=== PATIENT | female | born 1950 | race Caucasian/White ===

== ENCOUNTER 2016-08-11 06:19 | Inpatient (IN) | payer MEDICARE ==
--- NOTE | 2016-08-03 12:43 | HP ---
HISTORY AND PHYSICAL: DATE OF SURGERY: 08/11/16 DATE OF OFFICE VISIT: 08/03/16 SURGEON: Pavithra Cain MD. (DICTATED BY PASTORA HERNANDEZ) PROCEDURE: Right total knee arthroplasty. CHIEF COMPLAINT: Right knee pain. HISTORY OF PRESENT ILLNESS: Ms. Rivera is a 66-year-old female with complaints of right knee pain secondary to advanced osteoarthritis. She has failed conservative management and has elected to proceed with a right total knee arthroplasty, which is scheduled for 08/11/[address] Cain. PAST MEDICAL HISTORY: Hypertension and supraventricular tachycardia. PAST SURGICAL HISTORY: Right knee arthroscopy, tubal ligation. CURRENT MEDICATIONS: 1. Amlodipine 10 mg daily. 2. Metoprolol 50 mg daily. 3. Magnesium oxide 400 mg daily. 4. Os-Dayday 500/200, D3 twice a day. 5. Multivitamin. ALLERGIES: No known drug allergies. FAMILY MEDICAL HISTORY: Heart disease, diabetes, prostate cancer. SOCIAL HISTORY: She is a 66-year-old female. She is . She is retired. She does not smoker or use drugs. She uses occasional alcohol. REVIEW OF SYSTEMS: A complete 14-point review of systems was reviewed with the patient, was all negative and noncontributory. PHYSICAL EXAMINATION GENERAL: She is well developed, well nourished, in no acute distress. She is alert and oriented x3, pleasant and with appropriate affect. VITAL SIGNS: The patient is 5 feet 4 inches tall, weight 235 pounds, blood pressure 140/86, heart rate 68. HEENT: Normocephalic, atraumatic. NECK: Supple. No palpable lymph nodes. CARDIAC: Regular rate and rhythm. PULMONARY: The lungs are clear to auscultation bilaterally. ABDOMEN: Soft, nontender, nondistended. MUSCULOSKELETAL: Right lower extremity, the skin is intact. There is a large effusion with tenderness over the medial-lateral joint line. 0 to 125 range of motion. Her lower extremities muscle group strengths are intact at 5/5. She has 2+ dorsalis pedis pulses and intact sensation. NEUROLOGIC: Cranial nerves II through XII are intact. ASSESSMENT AND PLAN: Ms. Rivera is a 66-year-old female with complaints of right knee pain secondary to osteoarthritis. She has failed conservative management and has elected to proceed with the right total knee arthroplasty. The surgery is scheduled for 08/11/[address] Cain discussed the risks and benefits of the surgery at today's visit and all of her questions were answered. Coumadin, Colace, and Percocet were sent to her pharmacy for postoperative pain control and DVT prophylaxis. To see Dr. Cain back in 2 weeks following surgery. PASTORA HERNANDEZ [id number]/[facility] #: [id number] MTDRigoberto
[~2016-08-11 06:19] MED LIST: Dexamethasone IV* 4 MG/ML 1 ML (4 MG) IV SLOW PU ONE; Famotidine IV* 10 MG/ML 2 ML (20 mg) IV ONE
[2016-08-11] MEDS ORDERED: Midazolam* 1 MG/ML 5 ML VIAL (5 MG) ONE (06:41)
[2016-08-11] MEDS ORDERED: fentaNYL* 50 MCG/ML 2 ML VIAL (100 MCG VIAL) ONE ×3 (06:41→10:20)
[2016-08-11] MEDS ORDERED: HYDROmorphone* 1 MG/ML 1 ML SYR ONE ×3 (06:41→08:13)
[2016-08-11] MEDS ORDERED: Morphine PF AMP (0.5MG/ML)* 5 MG/10 ML AMP ONE (06:41)
[2016-08-11] MEDS ORDERED: Dexamethasone IV* 4 MG/ML 1 ML (4 MG) ONE (06:52)
[2016-08-11] MEDS ORDERED: ceFAZolin 2 GM PREMIX(*) 2 GM/50 ML BAG IVPB ONE (06:52)
[2016-08-11] MEDS ORDERED: Famotidine IV* 10 MG/ML 2 ML (20 mg) ONE (06:52)
[2016-08-11] MEDS ORDERED: Dexmedetomidine* 200 MCG/2 ML 2 ML VIAL ONE (06:54)
[2016-08-11] MEDS ORDERED: Propofol* 10 MG/ML 20 ML BTL IV PUSH ONE ×2 (06:54→10:00)
[2016-08-11] MEDS ORDERED: Bupivacaine 0.5% SDV PF* 30 ML VIAL ONE (07:06)
[2016-08-11] MEDS ORDERED: fentaNYL* 50 MCG/ML 2 ML VIAL (100 MCG VIAL) IV PRN (07:21)
[2016-08-11] MEDS ORDERED: PROCHLORPERAZINE INJ 5 MG/ML 2 ML VIAL IV PRN ×2 (07:21→10:43)
[2016-08-11] MEDS ORDERED: DiMENhydriNATE IV* 50 MG/ML VIAL IV PUSH PRN ×2 (07:21→10:43)
[2016-08-11] MEDS ORDERED: Ondansetron INJ* 2 MG/ML VIAL IV PRN ×2 (07:21→10:43)
[2016-08-11] MEDS ORDERED: HYDROmorphone* 1 MG/ML 1 ML SYR IV PRN (07:21)
[2016-08-11] MEDS ORDERED: Meperidine SYRINGE* 50 MG/ML ONE (08:13)
[2016-08-11] MEDS ORDERED: traZODone TAB* 50 MG TAB PO PRN (10:35)
[2016-08-11] MEDS ORDERED: Bisacodyl SUPP* 10 MG SUPP PR PRN (10:35)
[2016-08-11] MEDS ORDERED: oxyCODONE/Acetamin 5/325 MG* TAB PO PRN ×2 (10:35→10:43)
[2016-08-11] MEDS ORDERED: Acetaminophen TAB* 325 MG PO PRN (10:35)
[2016-08-11] MEDS ORDERED: Magnesium Hydroxide LIQ* 30 ML UDC PO PRN (10:35)
[2016-08-11] MEDS ORDERED: diPHENhydraMINE IV* 50 MG/ML 1 ml VIAL (BENADRYL) IV PRN ×2 (10:35→10:43)
[2016-08-11] MEDS ORDERED: Polyethylene Glycol 3350* 17 GM PACKET PO PRN (10:35)
[2016-08-11] MEDS ORDERED: Ondansetron TAB* 4 MG PO PRN (10:35)
[2016-08-11] MEDS ORDERED: Morphine INJ* 2 MG/ML 1 ML SYRINGE IV PRN (10:35)
[2016-08-11] MEDS ORDERED: Naloxone* 0.4 MG/ML 1 ML VIAL IV PRN (10:43)
[2016-08-11] MEDS ORDERED: Nalbuphine* 20 MG/ML 1 ML VIAL IV PRN (10:43)
[2016-08-11] MEDS ORDERED: ceFAZolin VIAL(*) 1 GM in NS 0.9% 50 ML* 50 ML IVPB SCH (11:00)
--- NOTE | 2016-08-11 11:47 | RAD ---
INDICATION: Right total knee replacement COMPARISON: June 29, 2016 TECHNIQUE: Portable AP and crosstable lateral views were obtained. FINDINGS: There is right knee arthroplasty. Both tibial and femoral components appear well seated. There is a cooling jacket in place. IMPRESSION: POSTOPERATIVE RIGHT KNEE ARTHROPLASTY.
[2016-08-11] MEDS: ceFAZolin VIAL(*) 1 GM in NS 0.9% 50 ML* 50 ML IVPB SCH ×2 (15:36→23:29)
[2016-08-11] MEDS ORDERED: Warfarin TAB(*) 6 MG PO ONE (17:00)
[2016-08-11] MEDS: Metoprolol Succinate XL TAB* 50 MG PO SCH (17:04)
[2016-08-11] MEDS ORDERED: Metoprolol Succinate XL TAB* 50 MG PO SCH (18:00)
--- NOTE | 2016-08-11 19:59 | CONS ---
CONSULTATION REPORT: DATE OF CONSULT: 08/11/16 PRIMARY CARE PROVIDER: Dr. Funk. ORTHOPEDIC SURGEON: Dr. Cain. SERVICE REQUESTING CONSULT: Orthopedic Surgery. REASON FOR CONSULT: Co-medical management. HISTORY OBTAINED: From interview with the patient and review of past medical records. RELIABILITY: Good. HISTORY OF PRESENT ILLNESS: A 66-year-old female with past medical history of high blood pressure, osteoarthritis, as well as supraventricular tachycardia. She underwent a right total knee arthroplasty on 08/11/[address] Cain secondary to continued pain status post failing conservative management. The procedure was without complication. The patient was seen in Recovery in the presence of her . The patient relays that she received the diagnosis of supraventricular tachycardia 2 years prior after presenting to [facility] with tachycardia, shortness of breath. She was started on metoprolol at that time. She still intermittently gets episodes of palpitations; however, they largely resolve with Valsalva maneuver or coughing. There have been no recent changes to her medications. She has been a life-long nonsmoker and avoids caffeine. PAST MEDICAL HISTORY: Includes: 1. Hypertension. 2. Supraventricular tachycardia. 3. Osteoarthritis. PAST SURGICAL HISTORY: Right knee arthroscopy, tubal ligation. MEDICATIONS: Home medications reviewed with the patient and : 1. Amlodipine 10 mg daily. 2. Metoprolol XL 50 mg daily. 3. Magnesium oxide 400 mg daily. 4. Os-Dayday 500/200 twice daily. 5. Multivitamin daily. ALLERGIES: No known drug allergies. FAMILY HISTORY: Father had arthritis, cancer, CAD. Mother with hypertension. Paternal grandfather with CAD. SOCIAL HISTORY: Life-long nonsmoker. . One to two glasses of wine per month. PHYSICAL EXAM: Vitals: When seen by this author, 101/71, heart rate is 70, 94 % on 2 L, respiratory rate 18. Sitting up, 35 degrees in bed, interactive, pleasant, in no apparent distress. Oropharynx is clear, has dry mucous membranes. JVD to approximately 5 cm. Has regular rate and rhythm. No murmurs , rubs, or gallops. Her lungs are clear to auscultation bilaterally. Abdomen is soft, nontender, nondistended. Extremities are warm and well perfused. Her right knee is braced. She has good pulses in both feet. Neurovascularly intact. She is alert and oriented x3. Pupils are equal, round, and reactive to light. LABORATORY DATA: Reviewed, no labs prior to operation. ASSESSMENT AND PLAN: A 66-year-old female status post right total knee arthroplasty without complication. 1. Right total knee arthroplasty - postop day 0, trending serial hemoglobin and hematocrits daily as ordered per orthopedic team. Care per primary team. 2. Hypotension - blood pressure low status post procedure suspected in the setting of anesthesia. We will plan on restarting amlodipine when blood pressure normalizes or becomes hypertensive tomorrow. Medication is ordered. I have added hold parameter. 3. Supraventricular tachycardia - well controlled. Check BMP tomorrow. Continue magnesium. Continue metoprolol. I have added hold parameters. 4. DVT prophylaxis - primary team has elected Lovenox and Coumadin. I will continue to follow. Thank you for this consultation. CC: Dr. Funk; Dr. Cain* [id number]/[facility] #: [id number] [facility]
[2016-08-11] MEDS: Docusate CAP* 100 MG PO SCH (20:01)
[2016-08-12] MEDS: oxyCODONE/Acetamin 5/325 MG* TAB PO PRN ×3 (04:09→12:29)
[2016-08-12 06:07] LABS: Hematocrit 35 % (35-47); Hemoglobin 11.9 g/dl (12.0-16.0)
[2016-08-12 06:23] LABS: BUN/Creatinine Ratio 17.9 (8-20); Calcium 8.7 mg/dL (8.6-10.3); EGFR African American 138.5 (>60); EGFR Non-African American 107.7 (>60); Potassium 3.7 mmol/L (3.5-5.0)
[2016-08-12] MEDS: ceFAZolin VIAL(*) 1 GM in NS 0.9% 50 ML* 50 ML IVPB SCH (08:13)
[2016-08-12] MEDS: Enoxaparin(*) 30 MG/0.3 ML SYR SUBCUT SCH (08:15)
[2016-08-12] MEDS: amLODIPine TAB* 5 MG PO SCH (08:16)
[2016-08-12] MEDS: Docusate CAP* 100 MG PO SCH ×2 (08:16→20:10)
[2016-08-12] MEDS ORDERED: AMLODIPINE BESYLATE PO SCH (09:00)
--- NOTE | 2016-08-12 09:11 | OP ---
OPERATIVE NOTE: DATE OF OPERATION: 08/11/16 - inpatient room #341-02 DATE OF : 46 ATTENDING SURGEON: Pavithra Cain MD. SHOPPER MARKETING MANAGER: PASTORA Hoskins. Ms. Cornelius was present throughout the procedure for preparation of the leg, wound retraction, manipulation of the leg, and wound closure. ANESTHESIOLOGIST: Dr. Scales ANESTHESIA: Spinal with adductor nerve block. PRE-OP DIAGNOSIS: Severe end-stage degenerative osteoarthritis of the right knee joint. POST-OP DIAGNOSIS: Severe end-stage degenerative osteoarthritis of the right knee joint. OPERATIVE PROCEDURE: Right total knee arthroplasty. TOURNIQUET TIME: 46 minutes. COMPLICATIONS: None. EBL: 200 cc. SPECIMEN: Bone and cartilage from the right knee joint, sent to Pathology. HARDWARE: [employer] cemented total knee hardware was used with 2 packages of Simplex bone cement. For the femur, a size 6 right narrow femoral component. For the tibia, a size 4 right tibial base plate. For the insert, a 13-mm Abbi II PS High-Flexion articular insert, size 3-4. For the patella, a 29-mm 3-peg all poly patella. BRIEF HISTORY/INDICATION: Ms. Rivera is a 66-year-old female with years of increasingly severe right knee pain. She failed conservative treatment with antiinflammatories, pain medications, intraarticular injections, and physical therapy. Radiographs showed severe end-stage arthritis. Due to continued pain and decreased quality of life, the patient elected to undergo right total knee arthroplasty. Informed consent was obtained from the patient. She understood the risks of surgery included, but were not limited to, bleeding, infection, damage to nearby structures, continued pain, need for further surgery, intraoperative fracture, nerve palsy, hardware failure or loosening, stiffness, loss of motion, stroke, heart attack, blood clot, and . She wished to proceed. INTRAOPERATIVE FINDINGS: Intraoperatively, the patient was noted to have severe end-stage arthritis. Full loss of cartilage in the medial and patellofemoral compartments. DESCRIPTION OF PROCEDURE: Ms. Rivera was identified in the preanesthesia unit and her right lower extremity was marked as the correct operative side. Informed consent was signed and placed in the chart. The patient was taken to the operating room and placed under spinal anesthesia with an adductor nerve block. Gibson catheter was placed. Tourniquet was placed on the right thigh. The right lower extremity was prepped and draped in the usual sterile fashion. Preop time-out was made to correctly identify the patient's side and site. Appropriate perioperative antibiotics were given within 1 hour of incision. Tourniquet was inflated and total tourniquet time for this procedure was 46 minutes. A 15-cm midline incision was made with a 10-blade and carried down to the extensor mechanism. Patella was subluxed laterally, carried down to the extensor mechanism. A new 10-blade was used to make a standard medial parapatellar arthrotomy. Patella was subluxed laterally. Electrocautery was used to subperiosteally elevate the soft tissue off the superomedial tibia to the mid sagittal plane. The knee was flexed up. The anterior horn of the lateral meniscus and ACL was sharply released. A drill was used to enter the distal femur. Intramedullary distal femoral cutting guide was pinned on the distal femur. Oscillating saw was used to make the distal femoral cut. External rotation guide was pinned on the distal femur and the distal femur was sized to a size 6. Size 6 multi-cutting jig was pinned on the distal femur. Oscillating saw was used to make the appropriate chamfer cuts. The PCL was completely released and the tibia was subluxed anteriorly. Extramedullary tibial cutting guide was pinned on the proximal tibia. Oscillating saw was used to make a proximal tibial cut perpendicular to the mechanical axis of the tibia. The bone was carefully removed. The knee was brought out into full extension. A spacer block had good fit medially and laterally. Flexion and extension gaps were well balanced. The knee was flexed up. Lamina spreaders were placed both medially and laterally. Any remaining meniscus was carefully removed with electrocautery. Any remaining osteophytes were removed from the posterior condyles. A size 6 right narrow femoral trial was impacted on to the distal femur. This trial had good fit. The box for the posterior stabilized implant was prepared using a reamer and box-cut osteotome. A size 4 tibial tray trial and 11-mm insert trial were placed. The knee was taken through range of motion and noted to be stable in all positions. There was full extension to 120 degrees of flexion. Flexion was limited by the patient's body habitus. Next, the patella was everted. 9-mm of patellar bony cartilage was carefully removed with an oscillating saw. The patella was sized to a size 29. The 3-peg holes were drilled through the size 29 guide. A 29 patellar trial was placed. The knee was taken through range of motion and patellofemoral tracking was satisfactory. All trials were carefully removed. The tibia was subluxed anteriorly. Tibia was sized to a size 4. Proximal tibia was prepared using a size 4 keel punch. All bony cut surfaces were copiously irrigated with sterile saline and dried. Final implants were cemented into place, starting with the tibia, followed by the femur, and lastly the patella. A 13-mm insert trial was placed while the knee was brought out into full extension. Cement was allowed to fully cure and tourniquet was turned down at 46 minutes. Once the cement was fully cured, the insert trial was removed. Any excess cement was carefully removed from around the implant. Electrocautery was used to obtain meticulous hemostasis. The knee was copiously irrigated with sterile saline. A 13- mm High-Flexion size 3-4 posterior stabilized insert was chosen as the final implant insert. This was locked into position on the trial tray without difficulty. Stability of the insert was checked and rechecked and noted to be stable. The knee was once again copiously irrigated with sterile saline. The extensor mechanism was closed using interrupted #1 Vicryl over a medium Hemovac drain. The rest of the incision was closed in a layered fashion using 0 and 2-0 Vicryl' s. Skin was closed using running 3-0 nylon suture. Sterile Xeroform, 4 x 4's, and Webril, were used to cover the incision. The Ra wrap and cold pack were placed over this. The patient's anesthesia was reversed without difficulty. She was taken to the PACU in stable condition. Intended weightbearing will be weightbearing as tolerated. Intended DVT prophylaxis will be Coumadin with a Lovenox bridge. [id number]/[facility] [place] #: [id number] BEATRICE
--- NOTE | 2016-08-12 10:05 | PN ---
Progress Note - Progress Note SOAP: Subjective: []Patient seen OOB in chair. She had a bout of nauesa and lightheadedness when getting up to the chair this am but no vomiting like last evening. He pain is well managed. Objective: [] Vital Signs Temp 97.7 F 08/12/16 07:25 Pulse 77 08/12/16 07:25 Resp 18 08/12/16 08:00 BP 142/74 08/12/16 07:25 Pulse Ox 98 08/12/16 08:00 Intake & Output 08/11/16 08/12/16 08/12/16 18:59 06:59 18:59 Intake Total 3330 1684 1395 Output Total 2745 2000 350 Balance 585 -316 1045 Intake: IV Fluids 2630 554 995 ABX - CEFAZOLIN 67 LR 2630 554 928 IVPB 60 ABX - CEFAZOLIN 60 Oral 640 1130 400 Output: Gibson 1125 1999 350 Residual 20 Gibson 16 Fr 20 Emesis 1400 Estimated Blood Loss 200 Laboratory Results - last 24 hr 08/12/16 08/12/16 08/12/16 05:33 05:33 05:33 Hgb 11.9 L Hct 35 INR (Anticoag Therapy) 1.02 Sodium 136 Potassium 3.7 Chloride 103 Carbon Dioxide 28 Anion Gap 5 BUN 10 Creatinine 0.56 Est GFR ( Amer) 138.5 Est GFR (Non-Af Amer) 107.7 BUN/Creatinine Ratio 17.9 Glucose 112 H Calcium 8.7 Right knee elevated on step stool Active DF/PF calf non tender and soft neuro vascularly intact distally dressings dry and intact hemovac drain discontinued without difficulty, tip intact Assessment: []s/p Right total knee arthroplasty POD #1 Plan: []PT/OT WBAT RLE Coumadin with Lovenox bridge, 8mg today Home Wednesday w VNS
[2016-08-12] MEDS ORDERED: Scopolamine 1.5 mg* PATCH TRANSDERM ONE (15:00)
--- NOTE | 2016-08-12 16:49 | PN ---
Subjective Date of Service: 08/12/16 Interval History: This is a 66 yo female with HTN and PSVT who is s/p RTKA by Dr Cain. Patient reports good pain control. C/o nausea yesterday and this am, improved with scopolamine. Denies SOB, CP, palpitations, abd pain. Objective Active Medications: Acetaminophen (Tylenol Tab*) 650 mg PO Q4H PRN PRN Reason: pain or temp Amlodipine Besylate (Norvasc Tab*) 10 mg PO QAM [facility] Last Admin: 08/12/16 08:16 Dose: 10 mg Bisacodyl (Dulcolax Supp*) 10 mg ND DAILY PRN PRN Reason: constipation Diphenhydramine HCl (Benadryl Iv*) 12.5 mg IV Q6H PRN PRN Reason: PRURITIS Docusate Sodium (Colace Cap*) 100 mg PO BID [facility] Last Admin: 08/12/16 08:16 Dose: 100 mg Enoxaparin Sodium (Lovenox(*)) 30 mg SUBCUT Q24H [facility] Last Admin: 08/12/16 08:15 Dose: 30 mg Lactated Ringer's (Lactated Ringers 1000 Ml Bag*) 1,000 mls @ 100 mls/hr IV PER RATE [facility] Last Admin: 08/12/16 08:20 Dose: 100 mls/hr Lactulose (Lactulose*) 30 ml PO Q6H PRN PRN Reason: constipation Magnesium Hydroxide (Milk Of Magnesia Liq*) 30 ml PO Q6H PRN PRN Reason: constipation Metoprolol Succinate (Toprol Xl Tab*) 50 mg PO QPM [facility] Last Admin: 08/11/16 17:04 Dose: 50 mg Morphine Sulfate (Morphine Inj (Syringe)*) 2 mg IV Q2H PRN PRN Reason: PAIN Ondansetron HCl (Zofran Tab*) 4 mg PO Q6H PRN PRN Reason: NAUSEA Last Admin: 08/12/16 08:54 Dose: 4 mg Oxycodone HCl (Roxycodone Tab*) 10 mg PO Q4H PRN PRN Reason: SEVERE PAIN Oxycodone/Acetaminophen (Percocet 5/325 Tab*) 1 tab PO Q3H PRN PRN Reason: PAIN - MODERATE Oxycodone/Acetaminophen (Percocet 5/325 Tab*) 2 tab PO Q3H PRN PRN Reason: PAIN - MODERATE Last Admin: 08/12/16 12:29 Dose: 2 tab Pharmacy Profile Note (Coumadin Daily Reminder*) 1 note FOLLOW UP 1700 PRICE Polyethylene Glycol/Electrolytes (Miralax*) 17 gm PO DAILY PRN PRN Reason: Constipation Trazodone HCl (Desyrel Tab*) 25 mg PO BEDTIME PRN PRN Reason: insomnia Warfarin Sodium (Coumadin Tab(*)) 8 mg PO ONCE@1700 ONE PRN Reason: Protocol Stop: 08/12/16 17:01 Vital Signs: Temp Pulse Resp BP Pulse Ox 97.9 F 91 18 126/63 97 08/12/16 15:27 08/12/16 15:27 08/12/16 15:27 08/12/16 15:27 08/12/16 15:53 Appearance: Well appearing middle aged female in NAD Respiratory: Symmetrical Chest Expansion and Respiratory Effort, Clear to Auscultation Cardiovascular: NL Sounds; No Murmurs; No JVD, RRR Extremities: No Edema Skin: No Rash or Ulcers, - - R knee in clean surgical dressing Neurological: Alert and Oriented x 3 Result Diagrams: 08/12/16 05:33 08/12/16 05:33 Assess/Plan/Problems-Billing Assessment: This is a 66 yo female with HTN and PSVT s/p R TKA by Dr Cain. Hospitalists are comanaging - Patient Problems (1) History of total knee arthroplasty Comment: POD #[address] Cain Management per ortho Patient appears to be doing quite well (2) HTN (hypertension) Comment: Normotensive Cont metoprolol and amlodipine (3) PSVT (paroxysmal supraventricular tachycardia) Comment: Asx Cont metoprolol, nl BMP (4) Full code status (5) DVT prophylaxis Comment: Lovenox bridge to Coumadin per ortho Status and Disposition: Dispo per ortho. Hospitalists will continue to follow along
[2016-08-12] MEDS ORDERED: Warfarin TAB(*) 4 MG PO ONE (17:00)
[2016-08-12] MEDS: Metoprolol Succinate XL TAB* 50 MG PO SCH (18:13)
[2016-08-12] MEDS: oxyCODONE TAB* 5 MG TAB PO PRN (18:13)
[2016-08-13] MEDS: oxyCODONE TAB* 5 MG TAB PO PRN ×3 (01:10→21:07)
[2016-08-13 06:56] LABS: Hematocrit 36 % (35-47); Hemoglobin 12.1 g/dl (12.0-16.0); Mean Platelet Volume 8 um3 (7.4-10.4)
--- NOTE | 2016-08-13 07:49 | PN ---
Progress Note - Progress Note SOAP: Subjective: Pt. is alert, reports pain is controlled. Objective: RLE - dressing changed, inc c/d/i. distally nvi. Vital Signs: Temp Pulse Resp BP Pulse Ox 99.1 F 108 17 128/66 95 08/13/16 03:12 08/13/16 07:39 08/13/16 06:09 08/13/16 03:12 08/13/16 03:12 Laboratory Results - last 24 hr 08/13/16 08/13/16 06:06 06:06 Hgb 12.1 Hct 36 Plt Count 290 MPV 8 INR (Anticoag Therapy) 1.33 H Assessment: 66 yo F pod 2 s/p RTKA Plan: hct and vitals stable pt/ot lovenox today, 8 mg coumadin tonight. plan d/c to home 08/14
[2016-08-13] MEDS: amLODIPine TAB* 5 MG PO SCH (08:28)
[2016-08-13] MEDS: Docusate CAP* 100 MG PO SCH ×2 (08:28→19:55)
[2016-08-13] MEDS: Enoxaparin(*) 30 MG/0.3 ML SYR SUBCUT SCH (08:29)
[2016-08-13] MEDS: oxyCODONE/Acetamin 5/325 MG* TAB PO PRN ×3 (09:28→17:04)
--- NOTE | 2016-08-13 15:08 | PN ---
Subjective Date of Service: 08/13/16 Interval History: Patient reports no acute concerns. Nausea improved today. Pain well controlled. Nursing was concerned about her tachycardia starting last night. Patient denies associated pain, SOB, cough. Objective Active Medications: Acetaminophen (Tylenol Tab*) 650 mg PO Q4H PRN PRN Reason: pain or temp Amlodipine Besylate (Norvasc Tab*) 10 mg PO QAM [facility] Last Admin: 08/13/16 08:28 Dose: 10 mg Bisacodyl (Dulcolax Supp*) 10 mg RI DAILY PRN PRN Reason: constipation Diphenhydramine HCl (Benadryl Iv*) 12.5 mg IV Q6H PRN PRN Reason: PRURITIS Docusate Sodium (Colace Cap*) 100 mg PO BID [facility] Last Admin: 08/13/16 08:28 Dose: 100 mg Enoxaparin Sodium (Lovenox(*)) 30 mg SUBCUT Q24H [facility] Last Admin: 08/13/16 08:29 Dose: 30 mg Lactated Ringer's (Lactated Ringers 1000 Ml Bag*) 1,000 mls @ 100 mls/hr IV PER RATE [facility] Last Admin: 08/12/16 08:20 Dose: 100 mls/hr Lactulose (Lactulose*) 30 ml PO Q6H PRN PRN Reason: constipation Magnesium Hydroxide (Milk Of Magnfrederick Liq*) 30 ml PO Q6H PRN PRN Reason: constipation Last Admin: 08/13/16 08:25 Dose: 30 ml Metoprolol Succinate (Toprol Xl Tab*) 50 mg PO QPM [facility] Last Admin: 08/12/16 18:13 Dose: 50 mg Morphine Sulfate (Morphine Inj (Syringe)*) 2 mg IV Q2H PRN PRN Reason: PAIN Ondansetron HCl (Zofran Tab*) 4 mg PO Q6H PRN PRN Reason: NAUSEA Last Admin: 08/12/16 08:54 Dose: 4 mg Oxycodone HCl (Roxycodone Tab*) 10 mg PO Q4H PRN PRN Reason: SEVERE PAIN Last Admin: 08/13/16 06:09 Dose: 10 mg Oxycodone/Acetaminophen (Percocet 5/325 Tab*) 1 tab PO Q3H PRN PRN Reason: PAIN - MODERATE Oxycodone/Acetaminophen (Percocet 5/325 Tab*) 2 tab PO Q3H PRN PRN Reason: PAIN - MODERATE Last Admin: 08/13/16 12:37 Dose: 2 tab Pharmacy Profile Note (Coumadin Daily Reminder*) 1 note FOLLOW UP 1700 PRICE Last Admin: 08/12/16 17:05 Dose: 1 note Polyethylene Glycol/Electrolytes (Miralax*) 17 gm PO DAILY PRN PRN Reason: Constipation Trazodone HCl (Desyrel Tab*) 25 mg PO BEDTIME PRN PRN Reason: insomnia Warfarin Sodium (Coumadin Tab(*)) 8 mg PO ONCE@1700 ONE PRN Reason: Protocol Stop: 08/13/16 17:01 Vital Signs: Temp Pulse Resp BP Pulse Ox 98.7 F 97 18 112/64 94 08/13/16 11:13 08/13/16 11:13 08/13/16 12:37 08/13/16 11:13 08/13/16 11:13 Appearance: Well appearing middle aged female in NAD Respiratory: Symmetrical Chest Expansion and Respiratory Effort, Clear to Auscultation Cardiovascular: NL Sounds; No Murmurs; No JVD, RRR Extremities: - - trace bilateral edema Skin: No Rash or Ulcers Neurological: Alert and Oriented x 3 Result Diagrams: 08/13/16 06:06 08/12/16 05:33 Diagnostic Imaging: EKG - sinus, rate ~95 bpm, RBBB Assess/Plan/Problems-Billing Assessment: This is a 66 yo female with HTN and PSVT s/p R TKA by Dr Cain. Hospitalists are comanaging - Patient Problems (1) History of total knee arthroplasty Comment: POD #[address] Cain Management per ortho Patient appears to be doing quite well (2) Tachycardia Comment: Appears to be sinus tachycardia Normotensive, no assoc anemia Improving this afternoon No associated respiratory complaints, nl lung exam Cont to monitor and consider CXR and repeat labs tomorrow if persistent (3) HTN (hypertension) Comment: Normotensive Cont metoprolol and amlodipine (4) PSVT (paroxysmal supraventricular tachycardia) Comment: Asx Cont metoprolol, nl BMP (5) Full code status (6) DVT prophylaxis Comment: Lovenox bridge to Coumadin per ortho Status and Disposition: Dispo per ortho. Hospitalists will continue to follow along
[2016-08-13] MEDS ORDERED: Warfarin TAB(*) 4 MG PO ONE (17:00)
[2016-08-13] MEDS: Metoprolol Succinate XL TAB* 50 MG PO SCH (17:52)
[2016-08-14] MEDS: oxyCODONE/Acetamin 5/325 MG* TAB PO PRN ×3 (03:00→10:43)
[2016-08-14 05:44] LABS: Hematocrit 33 % (35-47); Hemoglobin 11.3 g/dl (12.0-16.0)
[2016-08-14 07:21] VITALS: BP 115/65
[2016-08-14] MEDS: amLODIPine TAB* 5 MG PO SCH (07:32)
[2016-08-14] MEDS: Enoxaparin(*) 30 MG/0.3 ML SYR SUBCUT SCH (07:32)
[2016-08-14] MEDS: Docusate CAP* 100 MG PO SCH (07:32)
--- NOTE | 2016-08-14 07:50 | PN ---
Progress Note - Progress Note SOAP: Subjective: 66 y/o female s/p R TKA by Dr. Cain 08/11/2016. Patient sitting up comfortably , NAD. VSS afebrile overnight. NO BM, but + flatus. Tolerating percocet well. Objective: General- Well appearing, NAD MSK- knee incision taken down, no erythema, drainage noted C/D/I., dressing replaced, + DF/PF, PT 2+ b/l, neg homans b/l, sensation intact grossly b/l LE' s. Vital Signs Temp 98.2 F 08/14/16 07:12 Pulse 88 08/14/16 07:12 Resp 16 08/14/16 07:34 BP 115/65 08/14/16 07:12 Pulse Ox 94 08/14/16 07:34 Intake & Output 08/13/16 08/14/16 08/14/16 18:59 06:59 18:59 Intake Total 840 400 Output Total 1150 850 300 Balance -310 -450 -300 Intake: Oral 840 400 Output: Urine 1150 850 300 Laboratory Results - last 24 hr 08/14/16 08/14/16 05:18 05:18 Hgb 11.3 L Hct 33 L INR (Anticoag Therapy) 2.51 H Assessment: 66 y/o female s/p R TKA by Dr. Cain 08/11/2016. Plan: DVT Prophylaxis- hold lovenox today, INR theraputic. Coumadin at home - Follow up with Dr. Cain in 10 days - Continue PT - Continue current pain regimen Active Medications Generic Name Dose Route Start Last Admin Trade Name Freq PRN Reason Stop Dose Admin Acetaminophen 650 mg 08/11/16 10:35 Tylenol Tab* PO Q4H PRN pain or temp Amlodipine Besylate 10 mg 08/12/16 09:00 08/14/16 07:32 Norvasc Tab* PO 10 mg QAM PRICE Administration Bisacodyl 10 mg 08/11/16 10:35 Dulcolax Supp* CT DAILY PRN constipation Diphenhydramine HCl 12.5 mg 08/11/16 10:35 Benadryl Iv* IV Q6H PRN PRURITIS Docusate Sodium 100 mg 08/11/16 21:00 08/14/16 07:32 Colace Cap* PO 100 mg BID PRICE Administration Enoxaparin Sodium 30 mg 08/12/16 08:00 08/14/16 07:32 Lovenox(*) SUBCUT 30 mg Q24H PRICE Administration Lactulose 30 ml 08/11/16 10:35 Lactulose* PO Q6H PRN constipation Magnesium Hydroxide 30 ml 08/11/16 10:35 08/13/16 08:25 Milk Of Magnesia Liq* PO 30 ml Q6H PRN Administration constipation Metoprolol Succinate 50 mg 08/11/16 18:00 08/13/16 17:52 Toprol Xl Tab* PO 50 mg QPM PRICE Administration Morphine Sulfate 2 mg 08/11/16 10:35 Morphine Inj (Syringe)* IV Q2H PRN PAIN Ondansetron HCl 4 mg 08/11/16 10:35 08/12/16 08:54 Zofran Tab* PO 4 mg Q6H PRN Administration NAUSEA Oxycodone HCl 10 mg 08/11/16 10:35 08/13/16 21:07 Roxycodone Tab* PO 10 mg Q4H PRN Administration SEVERE PAIN Oxycodone/Acetaminophen 1 tab 08/11/16 10:35 Percocet 5/325 Tab* PO Q3H PRN PAIN - MODERATE Oxycodone/Acetaminophen 2 tab 08/11/16 10:35 08/14/16 06:50 Percocet 5/325 Tab* PO 2 tab Q3H PRN Administration PAIN - MODERATE Pharmacy Profile Note 1 note 08/12/16 17:00 08/13/16 17:10 Coumadin Daily Reminder* FOLLOW UP 1 note 1700 PRICE Administration Polyethylene Glycol/Electrolytes 17 gm 08/11/16 10:35 Miralax* PO DAILY PRN Constipation Trazodone HCl 25 mg 08/11/16 10:35 Desyrel Tab* PO BEDTIME PRN insomnia
--- NOTE | 2016-08-15 03:37 | DS ---
DISCHARGE SUMMARY: DATE OF ADMISSION: 08/11/16 DATE OF DISCHARGE: 08/14/16 CHIEF COMPLAINT: 1. Right knee pain. 2. Hypertension. 3. Supraventricular tachycardia. DISCHARGE DIAGNOSES: 1. Status post right total knee arthroplasty. 2. Hypertension. 3. Supraventricular tachycardia. PROCEDURE: Right total knee arthroplasty. CONSULTATIONS: 1. Physical therapy. 2. Occupational therapy. 3. Hospitalist. BRIEF HISTORY: Ms. Rivera is a very pleasant 66-year-old female with severe end- stage degenerat jesse osteoarthritis of the right knee, who failed conservative treatment and elected to undergo a rig ht total knee arthroplasty by Dr. Pavithra Cain, on 08/11/16. HOSPITAL COURSE: Ms. Rivera was admitted to [facility] on 08/11/16, where she underwe nt an uncomplicated right total knee arthroplasty. Postoperatively, she recovered on the surgical ort stay unit. Her Gibson was removed on postoperative day 2 and she was voiding on her own without difficulty. She was advanced to a regular diet and her pain was controlled with p.o. Percocet. She was restarted on her home medications. Her labs and vital signs remained stable. She was able to w eight bear as tolerated on the right lower extremity. She advanced appropriately with physical thera py and occupational therapy. Her DVT prophylaxis was managed with Lovenox and Coumadin until she re ached therapeutic INR. On postoperative day 3, she was orthopedically and medically stable for [facility] go [facility] with [facility] services. PHYSICAL EXAMINATION: General: The patient is noted to be alert and oriented, in no acute distress . Vital Signs: On the day of discharge are temperature of 98.2, pulse of 88, respirations of 16, b lood pressure 115/65, pulse oxygenation 94% on room air. Musculoskeletal: The right knee bandage w as taken down, the incision was clean, dry, intact and replaced. Dorsiflexion and plantar flexion w ere 2+ bilaterally. Negative Homans sign bilaterally. Sensation was grossly intact in bilateral lo wer extremities. LABORATORY DATA: On date of discharge, H and H of 11.3 and 33 with an INR of 2.51. Radiographs: Postoperative radiographs of the right knee show prosthetic in place without signs of fracture. DISCHARGE MEDICATIONS: 1. Tylenol 650 mg p.o. q.4 hours p.r.n., not to exceed more than 4000 mg daily. 2. Dulcolax 10 mg daily p.r.n. 3. Colace 100 mg p.o. b.i.d. 4. Metoprolol 50 mg p.o. q. p.m. 5. Zofran 4 mg p.o. q.6 hours p.r.n. 6. Amlodipine 10 mg p.o. q.a.m. 7. Percocet 5/325 1 to 2 tablets every 3 hours as needed. 8. Magnesium oxide 500 mg p.o. q.h.s. 9. Daily multivitamin. 10. Os-Dayday extra strength 1 tablet p.o. b.i.d. 11. Coumadin 2 mg p.o. daily at 5 p.m. per her physician's instructions. CONDITION ON DISCHARGE: Good. DISCHARGE INSTRUCTIONS: Ms. Rivera is a very pleasant 66-year-old female postoperative day 3, st atus post right total knee arthroplasty, which was uncomplicated. She is orthopedically and medical ly stable for discharge to go home with home services. Her vital signs and labs are stable. She wi ll restart her home medications. She will hold her Coumadin dose for tonight, with a 2 mg on , 4 mg on 08/16/16 and have an INR draw on 08/17/16. She will have INR draws every Wednesday and Wed with visiting home services. She will remain weightbearing as tolerated on the right lower ex tremity. She will have home physical therapy twice a week. She will take Percocet as needed for pa in control and Colace up to 3 times a day for constipation. She will follow up with Dr. Cain in proximately 10 or 14 days for incision check and suture removal. She is instructed to go immediatel y to the ER should she develop chest pain or shortness of breath, and should she develop fever, incr easing pain, or redness, she is to call the office immediately. PASTORA LEAHY [id number]/[facility] #: [id number]
== END 2016-08-14 11:00 | disposition home health service (06) | DRG 470 ==
LOC: AA 06:19 → SSU 10:35
PROVIDERS: ADMIT Orthopaedic Surgery Adult Reconstructive Orthopaedic Surgery; ATTEND Orthopaedic Surgery Adult Reconstructive Orthopaedic Surgery
PROC: 0SRC0J9 Replacement of Right Knee Joint with Synthetic Substitute, Cemented, Open Approach (ICD-10-PCS; principal; 2016-08-11 07:45)
DX: M17.11 Unilateral primary osteoarthritis, right knee (principal); I95.9 Hypotension, unspecified; I47.1 Supraventricular tachycardia; I10 Essential (primary) hypertension; R11.0 Nausea; R42 Dizziness and giddiness; Z79.01 Long term (current) use of anticoagulants; Z98.51 Tubal ligation status; Z82.49 Family history of ischemic heart disease and other diseases of the circulatory system; Z83.3 Family history of diabetes mellitus; Z80.42 Family history of malignant neoplasm of prostate; Z72.89 Other problems related to lifestyle; Z80.9 Family history of malignant neoplasm, unspecified; Z82.61 Family history of arthritis
CPT/HCPCS: 36415; 80048; 85014; 85018; 85049; 85610; 93005; 94760; A9270-GY; C1776; J0690; J1100; J1170; J1240; J1650; J2250; J2300; J2405; J2704; J3010

== ENCOUNTER 2017-04-27 07:45 | Inpatient (IN) | payer MEDICARE ==
--- NOTE | 2017-04-19 20:21 | HP ---
HISTORY AND PHYSICAL: DATE OF ADMISSION/SURGERY: 04/30/17 SURGEON: Pavithra Cain MD.* (DICTATED BY PASTORA HERNANDEZ) PROCEDURE: Left total knee arthroplasty. CHIEF COMPLAINT: Left knee pain. HISTORY OF PRESENT ILLNESS: Ms. Rivera is a 66-year-old female with complaints of left knee pain. She has failed conservative management and elected to proceed with a left total knee arthroplasty which is scheduled for with Dr. Cain. PAST MEDICAL HISTORY: Hypertension and supraventricular tachycardia. PAST SURGICAL HISTORY: Right total knee arthroplasty, tubal ligation, right knee arthroscopy. CURRENT MEDICATIONS: 1. Amlodipine 10 mg daily. 2. Metoprolol 50 mg daily. 3. Magnesium oxide. 4. Calcium with vitamin D. 5. Excedrin as needed. ALLERGIES: None. FAMILY HISTORY: Heart disease, diabetes and prostate cancer. SOCIAL HISTORY: She is a 66-year-old female who lives with her . She does not smoke or use drugs. She uses occasional alcohol. REVIEW OF SYSTEMS: A complete 14-point review of systems was reviewed with the patient, was all negative. She denies history of DVT, PE, hepatitis C, HIV or anesthesia problems. PHYSICAL EXAMINATION GENERAL: Well developed, well nourished, in no acute distress. VITAL SIGNS: She stands 5 feet 4 inches tall, weight 245 pounds. Blood pressure 146/76, heart rate 64. HEENT: Normocephalic, atraumatic. NECK: Supple. No palpable lymph nodes. PULMONARY: The lungs are clear to auscultation bilaterally. CARDIAC: Regular rate and rhythm. Strong S1 and S2. ABDOMEN: Soft, nontender, nondistended. MUSCULOSKELETAL: Left lower extremity, the skin is intact. There is no open wounds or abrasions. She has a moderate joint effusion, some tenderness over the medial and lateral joint line. Range of motion 10 to 100 degrees with patellofemoral crepitus, 5/5 lower extremity strength, 2+ dorsalis pedis pulses and intact sensation. NEUROLOGIC: Alert and oriented x3. Cranial nerves II through XII are intact. ASSESSMENT AND PLAN: Ms. Rivera is a 66-year-old female with end-stage osteoarthritis of the left knee. She has failed conservative management and elected to proceed with a left total knee arthroplasty, which is scheduled for 04/30/[address] Cain discussed the risks and benefits of the surgery at today's visit and all of her questions were answered. Coumadin, Colace, and Percocet were sent to her pharmacy for postoperative pain control and DVT prophylaxis. She will follow up with Dr. Cain 2 weeks after the surgery. PASTORA HERNANDEZ [id number]/[facility] #: [id number]
[~2017-04-27 07:45] MED LIST changes: +Buffered Lidocaine 0.9% SYRIN* 5 ML/SYR SYRINGE INTRADERM ONE; -Dexamethasone IV* 4 MG/ML 1 ML (4 MG) IV SLOW PU ONE; +DiMENhydriNATE IV* 50 MG/ML VIAL IV PUSH PRN; +Morphine INJ* 2 MG/ML 1 ML CARPUJECT IV PRN; +Naloxone* 0.4 MG/ML 1 ML VIAL IV PRN; +PROCHLORPERAZINE INJ 5 MG/ML 2 ML VIAL IV PRN; +Scopolamine 1.5 mg* PATCH TRANSDERM ONE; +fentaNYL* 50 MCG/ML 2 ML VIAL (100 MCG VIAL) IV PRN
[2017-04-27] MEDS ORDERED: Gabapentin CAP(*) 300 MG PO ONE (08:10)
[2017-04-27] MEDS ORDERED: ceFAZolin 2 GM PREMIX (*) 2 GM/50 ML BAG IVPB ONE (08:27)
[2017-04-27] MEDS ORDERED: Scopolamine 1.5 mg* PATCH ONE (08:27)
[2017-04-27] MEDS ORDERED: Gabapentin CAP(*) 300 MG ONE (08:27)
[2017-04-27] MEDS ORDERED: Famotidine IV* 10 MG/ML 2 ML (20 mg) ONE (08:27)
--- OUTSIDE RECORDS SUMMARY | 2017-04-27 08:28 | XMS REPORT ---
:1950 External Reference #:[id number] Author Organization [facility] Address [address], [address] [place] [address] Phone [phone] Care Team Providers Name Role Phone Dominick Funk MD Primary Care Physician Unavailable Payers Type Date Identification Numbers Payment Provider Subscriber Medicare Primary Effective: Policy Number: Medicare Aleshia Rivera 2013 [id number] PayID: [id number] [address] [place] [address] Medigap Part B Effective: Policy Number: [facility] Aleshia Rivera 2013 [id number] Healthcare PayID: [id number] [address] [place] [address] Problems Date Description Provider Status Onset: Palpitations Active Onset: Hypertensive disorder Active Onset: 10/04/2014 Palpitations Pablo Scales MD Active Onset: 10/04/2014 Tachycardia Pablo Scales MD Active Onset: 10/04/2014 Aneurysm of thoracic aorta Pablo Scales MD Active Onset: 10/04/2014 Benign essential hypertension Pablo Scales MD Active Onset: 10/04/2014 Mixed hyperlipidemia Pablo Scales MD Active Onset: 04/20/2017 Essential hypertension Liberty Galan, MSN, Active CORROSION TECHNICIAN Family History Date Family Member(s) Problem(s) Comments Onset: (age 52 Years) Father Myocardial Infarction : (age 83 Years) Mother due to Gi Bleeding Social History Type Date Description Comments Lives With Spouse Diet Patient is on a low fat diet Diet Patient is on a low sodium diet Occupation Retired ADL's/IADL's Independent with all ADL's Cigarette Use Never Smoked Cigarettes ETOH Use Rarely consumes alcohol Daily Caffeine Patient consumes minimal amounts of caffeine Allergies, Adverse Reactions, Alerts Date Description Reaction Status Severity Comments 06/29/2014 NKDA active Medications Medication Date Status Form Strength Qnty SIG Indications Ordering Provider Amlodipine Active Tablets 10mg 30tabs Once Unknown Besylate 015 Daily Oscal 500/200 Active Tablets 500-200mg-U by Unknown D-3 000 nit mouth twice a day Metoprolol Active Tablets ER 50mg 1 by Unknown Succinate ER 000 24HR mouth every day Magnesium Active Capsules 500mg 1 by Unknown 000 mouth every day Multi Vitamin Active Tablets 1 by Unknown 000 mouth every day Metoprolol Hx Tablets ER 25mg 90tabs 1 by [place] Succinate ER 015 24HR mouth MD Yordy every day Bystolic Hx Tablets 2.5mg 30tabs 1 by 401.1 [place] 015 - mouth MD Yordy every 015 day Vital Signs Date Vital Result Comment 04/20/2017 BP Systolic Sitting Left Arm 132 mmHg BP Diastolic Sitting Left Arm 86 mmHg Heart Rate 87 /min Respiratory Rate 16 /min Height 67 inches 5'7" Weight 244.00 lb BMI (Body Mass Index) 38.2 kg/m2 BSA (Body Surface Area) 2.20 m2 [place] body weight in kilograms 61 02/01/2017 BP Systolic Sitting Left Arm 132 mmHg BP Diastolic Sitting Left Arm 88 mmHg Heart Rate 102 /min Respiratory Rate 16 /min Height 67 inches 5'7" Weight 239.00 lb BMI (Body Mass Index) 37.4 kg/m2 BSA (Body Surface Area) 2.18 m2 [place] body weight in kilograms 61 08/03/2016 BP Systolic Sitting Right Arm 130 mmHg BP Diastolic Sitting Right Arm 72 mmHg Heart Rate 91 /min Respiratory Rate 16 /min Height 67 inches 5'7" Weight 248.00 lb BMI (Body Mass Index) 38.8 kg/m2 BSA (Body Surface Area) 2.22 m2 [place] body weight in kilograms 61 05/28/2015 BP Systolic Sitting Left Arm 130 mmHg BP Diastolic Sitting Left Arm 88 mmHg Heart Rate 92 /min Respiratory Rate 16 /min Height 67 inches 5'7" Weight 233.00 lb BMI (Body Mass Index) 36.5 kg/m2 BSA (Body Surface Area) 2.16 m2 10/03/2014 BP Systolic Sitting Left Arm 152 mmHg BP Diastolic Sitting Left Arm 90 mmHg Heart Rate 88 /min Respiratory Rate 16 /min Height 67 inches 5'7" Weight 222.00 lb BMI (Body Mass Index) 34.8 kg/m2 BSA (Body Surface Area) 2.11 m2 07/03/2014 Heart Rate 104 /min Respiratory Rate 16 /min Height 67 inches 5'7" Weight 223.00 lb BMI (Body Mass Index) 34.9 kg/m2 BSA (Body Surface Area) 2.12 m2 Results Test Date Test Result H/L Range Note Laboratory test finding 05/30/2014 Alanine Aminotransferase 15 12-78 (Alt/SGPT) Albumin 3.6 3.4-5.0 Albumin/Globulin Ratio 1.0 Alkaline Phosphatase 80 45-117 Anion Gap 4 Low 8-16 Aspartate Amino Transf (Ast/Sgot) 16 15-37 BUN/Creatinine Ratio 22.5 Basophils # (Auto) 0.02 0.0-0.1 Basophils (%) (Auto) 0.3 0.0-1.1 Blood Urea Nitrogen 18 7-18 Calcium Level 8.7 8.5-10.1 Carbon Dioxide Level 28 21-32 Chloride Level 112 High 98-107 Creatinine 0.8 0.6-1.3 Eosinophils # (Auto) 0.06 0.0-0.5 Eosinophils (%) (Auto) 0.9 0.0-6.6 Free Thyroxine 1.07 0.76-1.46 Globulin 3.5 1.9-4.3 Glucose Screen 107 High 74-106 Hematocrit 43.9 36.0-46.1 Hemoglobin 14.9 11.6-15.8 Lymphocytes # (Auto) 1.50 Low 1.8-7.0 Lymphocytes (%) (Auto) 22.7 17.0-46.1 Mean Corpuscular Hemoglobin 31.8 25.9-32.7 Mean Corpuscular Hemoglobin Concent 33.9 30.8-34.3 Mean Corpuscular Volume 93.8 80.9-99.0 Mean Platelet Volume 10.0 8.9-12.4 Monocytes # (Auto) 0.44 0.3-0.9 Monocytes (%) (Auto) 6.6 4.3-13.2 Neutrophils # (Auto) 4.60 1.0-7.0 Neutrophils (%) (Auto) 69.5 40.4-72.8 Platelet Count 302 155-360 Potassium Level 4.2 3.5-5.1 RDW Coefficient of Variation 12.9 11.7-14.4 Red Blood Count 4.68 3.90-5.40 Red Cell Distribution Width 43.5 3-47 Sodium Level 144 136-145 Thyroid Stimulating Hormone (TSH) 3.77 High 0.36-3.74 Total Bilirubin 0.4 0.2-1.0 Total Creatine Kinase 50 26-192 Total Protein 7.1 6.4-8.2 White Blood Count 6.6 3.1-10.7 Procedures Date CPT Code Description Status 04/20/2017 05822 EKG-Tracing And Report Completed 02/01/2017 90443 EKG-Tracing And Report Completed 08/03/2016 55406 EKG-Tracing And Report Completed 05/23/2015 54804 Echocardiogram Complete Completed 07/03/2014 94253 EKG-Tracing And Report Completed 05/30/2014 80908 Echocardiogram Complete Completed 05/30/2014 68515 Event Monitor Inter/Review Only Completed Encounters Type Date Location Provider CPT E/M Dx Office Visit 04/20/2017 2:00p Cardiology Office Liberty Priest 78715 Z01.810 Angelia MSN, CORROSION TECHNICIAN I47.2 I47.1 I10 Office Visit 02/01/2017 9:45a [place] [address] R00.2 I71.2 I10 R94.31 Office Visit 08/03/2016 11:20a [place] [address] Z01.810 I47.2 I47.1 I10 I71.2 Office Visit 05/28/2015 11:00a Cardiology Office MARVIN Calvillo 22689 R00.2 I10 I71.2 E78.2 Office Visit 10/03/2014 3:30p Cardiology Office MARVIN Calvillo 91438 785.1 785.0 441.2 401.1 272.2 Office Visit 07/03/2014 1:10p Cardiology Office MARVIN Calvillo 61015 785.1 785.0 441.2 401.1 272.2 Office Visit 05/30/2014 10:23a [place] [address] 785.1 Plan of Care Future Appointment(s):10/19/2017 11:00 am - Liberty Galan, MSN, CORROSION TECHNICIAN at Cardiology Kjjjet0204/20/2017 - CHRIS Bhatti, FNPZ01.810 Encounter for preprocedural cardiovascular examinationComments:Cleared for surgery as above.I47.2 Ventricular tachycardiaComments:Monitor.I47.1 Supraventricular tachycardiaComments:Monitor.I10 Essential (primary) hypertensionComments:No changes.AllFollow up:Follow up visit in six months.
--- OUTSIDE RECORDS SUMMARY | 2017-04-27 08:29 | XMS REPORT ---
:1950 External Reference #:[id number] Author Organization [facility] Address [address] [address] Phone [phone] Care Team Providers Name Role Phone Dominick Funk MD Primary Care Physician Unavailable Payers Type Date Identification Numbers Payment Provider Subscriber Medicare Primary Effective: Policy Number: Medicare Aleshia Rivera 2015 [id number] PayID: [id number] [address] [place] [address] [facility] Part B Effective: Policy Number: [facility] Aleshia Leung 2013 [id number] Healthcare Miguel PayID: [id number] [address] [place] [address] Problems Date Description Provider Status Onset: 07/05/2015 Localized, primary osteoarthritis Pavithra Cain M.D. Active Onset: 09/09/2015 Knee pain Pavithra Cain M.D. Active Onset: 09/09/2015 Oth tear of medial meniscus, current Pavithra Cain M.D. Active injury, r knee, subs Onset: 09/09/2015 Oth tear of lat mensc, current injury, Pavithra Cain M.D. Active right knee, subs Onset: 09/25/2016 Arthroplasty of knee Pavithra Cain M.D. Active Family History Date Family Member(s) Problem(s) Comments General heart trouble, cancer and diabetes in immediate family Social History Type Date Description Comments Lives With Occupation Retired ETOH Use Rarely consumes wine Smoking Patient has never smoked Exercise Type/Frequency Exercises regularly Allergies, Adverse Reactions, Alerts Date Description Reaction Status Severity Comments 07/05/2015 NKDA active Medications Medication Date Status Form Strength Qnty SIG Indications Ordering Provider Amoxicillin 09/25/ Active Capsules 500mg 4caps take 4 Z96.651 Pavithra 2017 pills, 2 g Ant, 1 hour M.D. before dental or gi procedure Oxycodone-Acet 08/03/ Active Tablets 5-325mg 90tabs 1-2 tabs Pavithra aminophen 2017 by mouth Ant, every 4-6 M.D. hours as needed for pain Colace 08/03/ Active Capsules 100mg 90caps 1 tab by Pavithra 2017 mouth 2-3 Ant, times a M.D. day as needed Amlodipine 00/00/ Active Tablets 10mg 1 by mouth Unknown Besylate 0000 every day Metoprolol 0000/ Active Tablets ER 50mg 1 by mouth Unknown Succinate ER 0000 24HR every day Magnesium 0000/ Active Tablets 400mg 1 by mouth Unknown Oxide 0000 every day Oscal 500/200 00/00/ Active Tablets 500-200mg- bid Unknown D-3 0000 Unit Multivitamin 00/ Active Unknown 0000 Warfarin 08/03/ Hx Tablets 2mg 90tabs take 1-3 Pavithra Sodium 2016 - tabs by Ant, 09/24/ mouth at M.D. 2016 5pm nightly Percocet 09/08/ Hx Tablets 5-325mg 60tabs 1-2 Monica 2015 - tablets by Roxydonmeaghan, 11/04/ mouth PRICING SUPERVISOR 2015 every 4-6 hours as needed for pain Aspirin 09/08/ Hx Tablets 325mg 20tabs one by Monica 2015 - mouth once [place], 05/26/ a day for PRICING SUPERVISOR 2016 10 days to prevent blood clots Colace 09/08/ Hx Capsules 100mg 90caps 1 by mouth Monica 2015 - up to 3 [place], 11/04/ times a PRICING SUPERVISOR 2015 day as needed for constipati on. Medications Administered in Office Medication Date Status Form Strength Qnty SIG Indications Ordering Provider Depomedrol Administered Injection Pavithra 40MG 017 Leatha Cain Vital Signs Date Vital Result Comment 04/02/2017 Height 64 inches 5'4" Weight 248.00 lb BP Systolic 134 mmHg BP Diastolic 86 mmHg Respiratory Rate 20 /min Pain Level 1 BMI (Body Mass Index) 42.6 kg/m2 10/30/2016 Height 64 inches 5'4" Weight 248.00 lb BP Systolic 126 mmHg BP Diastolic 80 mmHg Respiratory Rate 18 /min Pain Level 3 BMI (Body Mass Index) 42.6 kg/m2 09/25/2016 Height 64 inches 5'4" Weight 248.00 lb Heart Rate 124 /min BP Systolic 145 mmHg BP Diastolic 81 mmHg Body Temperature 98.7 F BMI (Body Mass Index) 42.6 kg/m2 08/21/2016 Height 64 inches 5'4" Weight 248.00 lb Heart Rate 96 /min BP Systolic 131 mmHg BP Diastolic 76 mmHg Body Temperature 98.6 F Pain Level 6 BMI (Body Mass Index) 42.6 kg/m2 08/03/2016 Height 64 inches 5'4" Weight 234.00 lb Heart Rate 68 /min BP Systolic 110 mmHg BP Diastolic 80 mmHg Respiratory Rate 12 /min Pain Level 0 BMI (Body Mass Index) 40.2 kg/m2 06/29/2016 Height 64 inches 5'4" Weight 235.00 lb Heart Rate 91 /min BP Systolic 140 mmHg BP Diastolic 86 mmHg Body Temperature 98.2 F Pain Level 2 BMI (Body Mass Index) 40.3 kg/m2 05/27/2016 Height 64 inches 5'4" Weight 235.00 lb Heart Rate 84 /min BP Systolic 136 mmHg BP Diastolic 83 mmHg BMI (Body Mass Index) 40.3 kg/m2 11/06/2015 Height 63.25 inches 5'3.25" Weight 232.00 lb Heart Rate 77 /min BP Systolic 149 mmHg BP Diastolic 82 mmHg BMI (Body Mass Index) 40.8 kg/m2 09/30/2015 Height 63.25 inches 5'3.25" Weight 240.00 lb Body Temperature 98.3 F Pain Level 2 BMI (Body Mass Index) 42.2 kg/m2 09/09/2015 Height 63.25 inches 5'3.25" Weight 240.00 lb Heart Rate 83 /min BP Systolic 127 mmHg BP Diastolic 77 mmHg BMI (Body Mass Index) 42.2 kg/m2 08/16/2015 Height 64 inches 5'4" Weight 230.00 lb Pain Level 1 BMI (Body Mass Index) 39.5 kg/m2 07/05/2015 Height 64 inches 5'4" Weight 230.00 lb Heart Rate 88 /min BP Systolic 137 mmHg BP Diastolic 83 mmHg Pain Level 3 BMI (Body Mass Index) 39.5 kg/m2 Results Test Date Test Result H/L Range Note Inr/Protime 09/03/2016 Inr 1.89 High 0.89-1.11 1 Inr/Protime 08/31/2016 Inr 1.61 High 0.89-1.11 2 Inr/Protime 08/27/2016 Inr 1.86 High 0.89-1.11 3 Inr/Protime 08/24/2016 Inr 4.76 High 0.89-1.11 4 Inr/Protime 08/20/2016 Inr 1.79 High 0.89-1.11 5 Inr/Protime 08/18/2016 Inr 1.79 High 0.89-1.11 6 Inr/Protime 08/05/2016 Inr 0.92 0.89-1.11 7 Laboratory test 08/05/2016 Partial Thrombo 31.7 seconds 26.0-36.3 7 finding Time PTT Type & Screen 08/05/2016 Patient Blood Type O Positive 7 Antibody Screen NEGATIVE 7 1 CALL STAT RESULTS TO [id number] 2 [id number] [phone] CALL RESULTS TO [id number] 4 CALL STAT RESULTS [phone] CALL STAT RESULTS TO [phone] CALL STAT RESULT TO [id number] 7 BILATERAL PRIMARY OSTEOARTHRITIS OF KNEE, PAIN IN Procedures Date CPT Code Description Status 08/13/2016 45056 EKG, Interpretation Only Completed 08/11/2016 19092 TKR Total Knee Replacement Completed 08/11/2016 87556 TKR Total Knee Replacement Completed 05/27/2016 11677 Inject/Drain Joint/Bursa Major Completed 09/19/2015 68894 Arthroscopy,Knee,Meniscectomy Media & Lateral Completed 09/19/2015 24927 Arthroscopy,Knee,Meniscectomy Media & Lateral Completed Encounters Type Date Location Provider CPT E/M Dx Office Visit 08/13/2016 [facility] jorgito Schultz 30890 I49.9 8:10a HospitalPASTORA Rod[facility]guez Z96.651 I10 Office Visit 08/12/2016 8:03a [place] Braeden Huff 52437 I49.9 [facility] Hospital[facility] Z96.651 I10 Office Visit 08/11/2016 8:03a [place] jorgito [place], [address] I49.9 Hospitaldemi Zhang I10 Z96.651 Office Visit 06/29/2016 9:15a [facility] Pav[facility]ra Cain M.D. 64905 M25.562 C.M.A. M17.0 M25.561 M25.462 M25.461 Office Visit 05/27/2016 9:00a [facility] Cain M.D. 73758 M25.562 C.M.A. M17.12 M25.462 Office Visit 08/16/2015 8:45a [facility] M.D. 35719 M17.11 C.M.A. S83.241D Z87.81 Office Visit 07/05/2015 8:30a [facility] Cain M.D. 40363 M17.11 C.M.A. S83.241A S83.282A M25.561 S82.114D Plan of Care 04/02/2017 - Pavithra aCin M.D.M25.562 Pain in left kneeFollow up:Follow up: As ntywbdF01.462 Effusion, left kneeM17.12 Unilateral primary osteoarthritis, left knee
--- OUTSIDE RECORDS SUMMARY | 2017-04-27 08:29 | XMS REPORT ---
:1950 External Reference #:[id number] Author Organization [employer] Address [address] [address] Phone [phone] Care Team Providers Name Role Phone Dominick Funk MD Primary Care Physician Unavailable Payers Type Date Identification Numbers Payment Provider Subscriber Medicare Primary Effective: Policy Number: Medicare Aleshia Rivera 2015 [id number] PayID: [id number] [address] [place] [address] [facility] Part B Effective: Policy Number: [facility] Aleshia Leung 2013 [id number] [facility] Miguel PayID: [id number] [address] [place] [address] Problems Date Description Provider Status Onset: 07/05/2015 [...] Capsules 500mg 4caps take 4 Z96.651 Pavithra 2016 pills, 2 g Ant, 1 hour M.D. before dental or gi procedure Amlodipine 00/ Active Tablets 10mg 1 by mouth Unknown Besylate 0000 every day Metoprolol 00/ Active Tablets ER 50mg 1 by mouth Unknown Succinate ER 0000 24HR every day Magnesium 00// Active Tablets 400mg 1 by mouth Unknown Oxide 0000 every day Multivitamin 00/ Active Unknown 0000 Calcium + D / Active Unknown 0000 Excedrin Extra / Active Tablets 250-250-65 Unknown Strength 0000 mg Warfarin 08/03/ Hx Tablets 2mg 90tabs take 1-3 Pavithra Sodium 2017 - tabs by Ant, 09/24/ mouth at M.D. 2017 5pm nightly Oxycodone-Acet 15/ Hx Tablets 5-325mg 90tabs 1-2 tabs Pavithra aminophen 2016 - by mouth Ant, 04/18/ every 4-6 M.D. 2018 hours as needed for pain Colace 15/ Hx Capsules 100mg 90caps 1 tab by Pavithra 2016 - mouth 2-3 Ant, 04/18/ times a M.D. 2017 day as needed Percocet 20/ Hx Tablets 5-325mg 60tabs 1-2 Monica 2015 - tablets by Roxydonmeaghan, 11/04/ mouth [employer]ER SALES SERVICE MANAGER 2015 every 4-6 hours as needed for pain Aspirin /20/ Hx Tablets 325mg 20tabs one by Monica 2015 - mouth once Bordoni, 05/26/ a day for CUSTOMER SALES SERVICE MANAGER 2016 10 days to prevent blood clots Colace 06/20/ Hx Capsules 100mg 90caps 1 by mouth Monica 2015 - up to 3 Bordoni, 11/04/ times a CUSTOMER SALES SERVICE MANAGER 2015 day as needed for constipati on. Oscal 500/200 0000/ Hx Tablets 500-200mg- bid Unknown D-3 0000 - Unit 2017 Medications Administered in Office Medication Date Status Form Strength Qnty SIG Indications Ordering Provider Depomedrol Administered Injection Pavithra 40MG 017 Leatha Cain Vital Signs Date Vital Result Comment 04/19/2017 Height 64 inches 5'4" Weight 245.00 lb Heart Rate 64 /min BP Systolic 146 mmHg BP Diastolic 76 mmHg BMI (Body Mass Index) 42.0 kg/m2 04/02/2017 Height 64 inches 5'4" Weight 248.00 [...] NEGATIVE 7 1 CALL STAT RESULTS TO [phone] 2 [id number] 3 CALL RESULTS TO [phone] 4 CALL STAT RESULTS [phone] 5 CALL STAT RESULTS TO [phone] 6 CALL STAT RESULT TO [phone] 7 BILATERAL PRIMARY OSTEOARTHRITIS OF KNEE, PAIN IN Procedures Date CPT Code Description Status 08/13/2016 06851 EKG, Interpretation Only Completed 08/11/2016 27416 TKR Total Knee Replacement Completed 08/11/2016 60742 TKR Total Knee Replacement Completed 05/27/2016 57479 Inject/Drain Joint/Bursa Major Completed 09/19/2015 87309 Arthroscopy,Knee,Meniscectomy Media & Lateral Completed 09/19/2015 42043 Arthroscopy,Knee,Meniscectomy Media & Lateral Completed Encounters Type Date Location Provider CPT E/M Dx Office Visit 04/02/2017 [facility] Pavithra Cain M.D. 54176 M25.562 2:[facility]p [facility] M25.462 M17.12 Office Visit 08/13/2016 8:10a [facility] [place] [address] [facility] [place] [facility] Z96.651 I10 Office Visit 08/12/2016 8:03a [facility] [address] [facility] [place] [facility] Z96.651 I10 Office Visit 08/11/2016 8:03a [facility] Dominick Deleon, [address] I49.9 Hospitalists M.Mitchell I10 Z96.651 Office Visit 06/29/2016 9:15a [facility] Cain M.D. 90531 M25.562 [facility] M17.0 M25.561 M25.462 M25.461 Office Visit 05/27/2016 9:00a [facility] Pav[facility] Cain M.D. 53616 M25.562 C.M.ABlossom M17.12 M25.462 Office Visit 08/16/2015 8:45a [facility] Cain M.D. 32441 M17.11 [facility] S83.241D Z87.81 Office Visit 07/05/2015 8:30a [facility] Cain M.D. 85535 M17.11 [facility] S83.241A S83.282A M25.561 S82.114D Plan of Care Future Appointment(s):05/12/2017 10:00 am - PASTORA Bach at [facility]04/30/2017 7:45 am - YOU Pretty at [facility]04/30/2017 7:45 am - Pavithra Cain M.D. at [facility]04/19/2017 - Pavithra Cain M.D.M25.562 Pain in left kneeFollow up:Follow up: 2 weeks after mvoiqhbH38.462 Effusion, left kneeM17.12 Unilateral primary osteoarthritis, left knee
[2017-04-27] MEDS ORDERED: fentaNYL* 50 MCG/ML 2 ML VIAL (100 MCG VIAL) ONE (10:01)
[2017-04-27] MEDS ORDERED: Midazolam* 1 MG/ML 10 ML VIAL (10 MG) ONE (10:01)
[2017-04-27] MEDS ORDERED: Morphine PF AMP (0.5MG/ML)* 5 MG/10 ML AMP ONE (10:01)
[2017-04-27] MEDS ORDERED: KETAMINE HCL* 50 MG/ML 10 ML VIAL ONE (10:01)
[2017-04-27] MEDS ORDERED: Naloxone* 0.4 MG/ML 1 ML VIAL IV PRN (11:47)
[2017-04-27] MEDS ORDERED: Naloxone* 2 MG in NS 0.9% 250 ML* 250 ML IV PRN (11:47)
[2017-04-27] MEDS ORDERED: Ketorolac INJ* 30 MG/ML 1 ML VIAL IV PRN (11:47)
[2017-04-27] MEDS ORDERED: oxyCODONE/Acetamin 5/325 MG* TAB PO PRN (11:47)
[2017-04-27] MEDS ORDERED: PROCHLORPERAZINE INJ 5 MG/ML 2 ML VIAL IV PRN (11:47)
[2017-04-27] MEDS ORDERED: Nalbuphine* 20 MG/ML 1 ML VIAL IV PRN (11:47)
[2017-04-27] MEDS ORDERED: Ondansetron INJ* 2 MG/ML VIAL IV PRN (11:47)
[2017-04-27] MEDS ORDERED: DiMENhydriNATE IV* 50 MG/ML VIAL IV PUSH PRN (11:47)
[2017-04-27] MEDS ORDERED: diPHENhydraMINE IV* 50 MG/ML 1 ml VIAL (BENADRYL) IV PRN (11:47)
[2017-04-27] MEDS ORDERED: Magnesium Hydroxide LIQ* 30 ML UDC PO PRN (12:01)
[2017-04-27] MEDS ORDERED: Acetaminophen TAB* 325 MG PO PRN (12:01)
[2017-04-27] MEDS ORDERED: Bisacodyl SUPP* 10 MG SUPP PR PRN (12:01)
[2017-04-27] MEDS ORDERED: Polyethylene Glycol 3350* 17 GM PACKET PO PRN (12:01)
[2017-04-27] MEDS ORDERED: Cyclobenzaprine TAB* 10 MG PO PRN (12:01)
[2017-04-27] MEDS ORDERED: Bupivacaine 0.5% SDV PF* 10-30ML VIAL ONE (13:38)
[2017-04-27] MEDS ORDERED: Propofol* 500 MG/50 ML BTL ONE (13:38)
[2017-04-27] MEDS ORDERED: Lidocaine 2% PF* 10 ML AMP ONE (13:38)
[2017-04-27] MEDS ORDERED: Lidocaine 2% PF * 5 ML VIAL ONE (13:38)
[2017-04-27] MEDS ORDERED: PROCHLORPERAZINE INJ 5 MG/ML 2 ML VIAL ONE (13:38)
[2017-04-27] MEDS ORDERED: Bupivacaine 0.25% SDV* 30 ML ONE (13:38)
[2017-04-27] MEDS ORDERED: Phenylephrine INJ* 10 MG/ML 1 ML VIAL (10 MG) ONE (13:38)
[2017-04-27] MEDS ORDERED: Ondansetron INJ* 2 MG/ML VIAL ONE (13:38)
[2017-04-27] MEDS ORDERED: Dexamethasone IV* 4 MG/ML 1 ML (4 MG) ONE (13:38)
--- NOTE | 2017-04-27 14:51 | RAD ---
HISTORY: status post left knee arthroplasty COMPARISONS: 04/02/2017 VIEWS: 2, Frontal and lateral views of the left knee FINDINGS: BONE DENSITY: Normal. BONES: The patient is status post left knee arthroplasty. There is no hardware failure or osteolysis. JOINTS: The patient is status post left knee arthroplasty. ALIGNMENT: There is no dislocation. SOFT TISSUES: Unremarkable. OTHER FINDINGS: None. IMPRESSION: STATUS POST LEFT KNEE ARTHROPLASTY
[2017-04-27] MEDS ORDERED: Warfarin TAB(*) 6 MG PO ONE (17:00)
[2017-04-27] MEDS: Metoprolol Succinate XL TAB* 50 MG PO SCH (18:20)
--- NOTE | 2017-04-27 20:19 | CONS ---
CONSULTATION REPORT: DATE OF CONSULT: 04/27/17 REQUESTING SERVICE: Orthopedics. REASON FOR CONSULTATION: Medical co-management. CHIEF COMPLAINT: Postop day #0, left TKA. HISTORY OF PRESENT ILLNESS: This is a 66-year-old female with a history of hypertension, SVT and osteoarthritis who was admitted today for an elective left TKA. She is seen postoperatively in her room and is resting comfortably and in no pain. She has no complaints at this time. She denies chest pain, palpitations, shortness of breath, fevers, chills, or any other recent illness. PAST MEDICAL HISTORY: Hypertension, SVT, osteopenia and osteoarthritis. HOME MEDICATIONS: 1. Amlodipine 10 mg daily. 2. Metoprolol 50 mg nightly 3. Calcium plus vitamin D. SOCIAL HISTORY: She does not smoke, drink or use illicit drugs. PHYSICAL EXAMINATION: General: Alert, well appearing female, in no distress. Vital Signs: Temperature 97.7, heart rate 90, respiratory rate 14, pulse ox 96 % on 2 L, blood pressure 138/89. HEENT: Pupils equal, round, and reactive to light. Extraocular movements intact. Moist mucosa. Neck: No JVP. No cervical adenopathy. Chest: Regular rate and rhythm. No murmurs. PMI nondisplaced. Lungs: Clear bilaterally. Abdomen: Soft, nontender, nondistended. Bowel sounds normoactive. Extremities: Left knee dressed. Distal pulses 2+. Strength intact. ASSESSMENT AND PLAN: This is a 66-year-old female with a history of hypertension, supraventricular tachycardia and osteopenia admitted for an elective TKA. Medical services consulted for medical comanagement. 1. Hypertension. Her blood pressure is well controlled on her home regimen of amlodipine and metoprolol. We will continue these medications. There is no need to have more strict control while she in the hospital. Her goal systolic blood pressure is less than 150. 2. Supraventricular tachycardia. She is in normal sinus rhythm right now. Continue her metoprolol and please check an EKG should she experience palpitations. 3. Osteopenia. Continue calcium and vitamin D supplementation. 4. Postop day #0, left TKA, management as per Ortho. Thank you for allowing us to participate in the care of this patient. Please call me at [phone] with any questions or concerns. [id number]/[facility] #: [id number] MTDD
[2017-04-27] MEDS: ceFAZolin 1 GM in Dextrose (*) 1 GM/50 ML BAG IVPB SCH (20:36)
[2017-04-27] MEDS: Magnesium Hydroxide LIQ* 30 ML UDC PO SCH (20:36)
[2017-04-27] MEDS: Docusate CAP* 100 MG PO SCH (20:37)
[2017-04-28] MEDS ORDERED: Morphine INJ* 2 MG/ML 1 ML CARPUJECT IV PRN (03:00)
[2017-04-28] MEDS ORDERED: Ondansetron TAB* 4 MG PO PRN (03:00)
[2017-04-28] MEDS ORDERED: diPHENhydraMINE IV* 50 MG/ML 1 ml VIAL (BENADRYL) IV PRN (03:00)
[2017-04-28] MEDS ORDERED: oxyCODONE TAB* 5 MG TAB PO PRN (03:00)
[2017-04-28] MEDS ORDERED: Ondansetron INJ* 2 MG/ML VIAL IV PRN (03:00)
[2017-04-28] MEDS: oxyCODONE/Acetamin 5/325 MG* TAB PO PRN ×6 (03:45→21:00)
[2017-04-28] MEDS: ceFAZolin 1 GM in Dextrose (*) 1 GM/50 ML BAG IVPB SCH ×2 (03:47→12:19)
[2017-04-28 06:12] LABS: Hematocrit 36 % (35-47); Hemoglobin 12.2 g/dl (12.0-16.0); Mean Platelet Volume 8 um3 (7.4-10.4); Platelet Count 287 10^3/ul (150-450)
[2017-04-28 06:18] LABS: INR 1.03 (0.77-1.02)
[2017-04-28 06:33] LABS: EGFR Non-African American 74.5 (>60)
--- NOTE | 2017-04-28 08:53 | PN ---
Progress Note - Progress Note Date of Service: 04/28/17 SOAP: Subjective: []Patient seen OOB in chair. She feels well with little left knee pain. Denies CP, SOB, nausea, dizziness, leg numbness. She has a history of SVT and was seen by our hospitalist service last night. She denies any irregular beats, plan will be to order an EKG if she does experience any irregular beats, dizziness, CP, SOB or any other concerning symptoms. Objective: []General: Well appearing, NAD Cardio: Radial pulse 2+. No obvious irregularity of rhythm LLE: Dressing CDI. Cryo in place. No erythema proximal or distal. DF/PF intact. 2+ DP pulse. BL LE: Calves supple and nontender without erythema, edema or palpable cords. Vital Signs Temp 98.3 F 04/28/17 07:50 Pulse 87 04/28/17 07:50 Resp 16 04/28/17 08:00 BP 127/52 04/28/17 07:50 Pulse Ox 94 04/28/17 08:00 Intake & Output 04/27/17 04/28/17 04/28/17 18:59 06:59 18:59 Intake Total 2600 1828 751 Output Total 1170 1900 Balance 1430 -72 751 Weight 242 lb Intake: IV Fluids 2600 878 696 LR 2600 878 696 IVPB 55 LR 55 Oral 950 Output: Gibson 950 1900 Residual 20 Gbison 16 Fr 20 Estimated Blood Loss 200 Other: # Bowel Movements 0 Laboratory Last Values Hgb 12.2 g/dl (12.0-16.0) 04/28/17 05:54 Hct 36 % (35-47) 04/28/17 05:54 Plt Count 287 10^3/ul (150-450) 04/28/17 05:54 MPV 8 um3 (7.4-10.4) 04/28/17 05:54 INR (Anticoag Therapy) 1.03 (0.77-1.02) H 04/28/17 05:54 Sodium 135 mmol/L (133-145) 04/28/17 05:54 Potassium 3.9 mmol/L (3.5-5.0) 04/28/17 05:54 Chloride 103 mmol/L (101-111) 04/28/17 05:54 Carbon Dioxide 27 mmol/L (22-32) 04/28/17 05:54 Anion Gap 5 mmol/L (2-11) 04/28/17 05:54 BUN 16 mg/dL (6-24) 04/28/17 05:54 Creatinine 0.77 mg/dL (0.51-0.95) 04/28/17 05:54 Est GFR ( Amer) 95.9 (>60) 04/28/17 05:54 Est GFR (Non-Af Amer) 74.5 (>60) 04/28/17 05:54 BUN/Creatinine Ratio 20.8 (8-20) H 04/28/17 05:54 Glucose 109 mg/dL (70-100) H 04/28/17 05:54 Calcium 8.9 mg/dL (8.6-10.3) 04/28/17 05:54 Assessment: [] POD 1 S/P left total knee arthroplasty 04/27 Plan: []WBAT PT/OT Lovenox, coumadin 8 mg today Appreciate hospitalist input
[2017-04-28] MEDS: Magnesium Hydroxide LIQ* 30 ML UDC PO SCH ×2 (09:02→20:59)
[2017-04-28] MEDS: amLODIPine TAB* 5 MG PO SCH (09:02)
[2017-04-28] MEDS: Docusate CAP* 100 MG PO SCH ×2 (09:02→20:59)
[2017-04-28] MEDS: Enoxaparin(*) 30 MG/0.3 ML SYR SUBCUT SCH (12:22)
[2017-04-28] MEDS: Metoprolol Succinate XL TAB* 50 MG PO SCH (16:59)
[2017-04-28] MEDS ORDERED: Warfarin TAB(*) 4 MG PO ONE (17:00)
--- NOTE | 2017-04-29 00:21 | OP ---
DATE OF OPERATION: 04/27/17 - ROOM #346 DATE OF : 46 ATTENDING SURGEON: Pavithra Cain MD CLAIMS CORRESPONDENCE CLERK: PASTORA Jarrett. Mr. Vital did help throughout the procedure with preparation of the leg, wound retraction, manipulation of the knee, and wound closure. ANESTHESIOLOGIST: Charly Rosario MD ANESTHESIA: Spinal. PRE-OP DIAGNOSIS: Severe end-stage degenerative osteoarthritis of the left knee joint. POST-OP DIAGNOSIS: Severe end-stage degenerative osteoarthritis of the left knee joint. OPERATIVE PROCEDURE: Left total knee arthroplasty. TOURNIQUET TIME: 45 minutes. COMPLICATIONS: None. SPECIMENS: Bone and cartilage from the left knee joint sent to pathology. HARDWARE: This is Scales and Nephew cemented total knee arthroplasty hardware with 2 packages of Simplex bone cement. For the femur, a size 6 left posterior stabilized Legion narrow femoral component. For the tibia, a size 5 left tibial base plate Abbi II. For the insert, an 11-mm posterior stabilized articular insert size 5/6. For the patella, a 32-mm, 3-peg all poly patella. BRIEF HISTORY/INDICATION: Ms. Rivera is a 66-year-old female with years of increasingly severe left knee pain. She started to have feelings of instability and sharp pain and radiographs showed [id number] arthritis. She failed conservative treatment with anti-inflammatories, pain medication, intraarticular injection, and physical therapy. She elected to undergo left total knee arthroplasty due to continued pain and decreased quality of life. Informed consent was obtained from the patient. She understood the risks of surgery included, but were not limited to bleeding, infection, damage to nearby structures, continued pain, need for further surgery, intraoperative fracture, nerve palsy, hardware failure or loosening, knee stiffness, loss of motion, stroke, heart attack, blood clot, and . She wished to proceed. INTRAOPERATIVE FINDINGS: Intraoperatively, the patient was noted to have severe end-stage arthritis with tricompartmental loss of cartilage. DESCRIPTION OF PROCEDURE: Ms. Rivera was identified in the preanesthesia unit. Her left lower extremity was marked as the correct operative side. Informed consent was signed and placed in the chart. The patient was taken to the operating room, placed under spinal anesthesia. A Gibson catheter was placed. Tourniquet was placed on the left thigh. Left lower extremity was prepped and draped in the usual sterile fashion. Preop time-out was made to correctly identify the patient's side and site. Appropriate perioperative antibiotics were given within 1 hour of incision. A 15-cm midline incision was made with a 10-blade and carried down to the extensor mechanism. A new 10-blade was used to make a standard medial parapatellar arthrotomy. The patella was subluxed laterally. Electrocautery was used to subperiosteally elevate the soft tissue off the superomedial tibia to the mid sagittal plane. The knee was flexed up. Anterior horn of the lateral meniscus and ACL were sharply released. A drill was used to enter the distal femur. Intramedullary distal femoral cutting guide was pinned on the distal femur. Oscillating saw was used to make distal femoral cut. Next, the external rotation guide was placed on the distal femur. Distal femur was sized to a size 6. Size 6 multi-cutting jig was pinned on the distal femur. Oscillating saw was used to make the appropriate 4 chamfer cuts. The PCL was completely released and the tibia was subluxed anteriorly. Extramedullary tibial cutting guide was pinned on the proximal tibia. Oscillating saw was used to make the proximal tibial cut perpendicular to the mechanical axis of the tibia. The bone was carefully removed. The knee was brought out into full extension. A spacer block had good fit. Medial and lateral ligaments were well balanced. Flexion and extension gaps were well balanced. The knee was flexed up. Lamina database admin was placed both medially and laterally. Any remaining meniscus was carefully removed using electrocautery. Posterior osteophytes were removed using a curved osteotome. Tibial tray and drop osmel were placed and to once again confirm a satisfactory alignment of the tibial cut. A size 6 narrow left femoral trial was chosen and impacted on to the distal femur. This had good fit. The box for the posterior stabilized implant was prepared using a reamer and box cut osteotome. Size 5 tibial tray trial with an 11-mm insert trial was placed and the knee was taken through a range of motion. The knee had full extension to 130 degrees of flexion with good patellofemoral tracking. The patella was everted. 9-mm of patellar bone and cartilage was carefully removed with an oscillating saw. Patella was sized to a size 32. Three pegs holes were drilled through the size 32 guide. A 32 patella trial was placed and the knee was taken through range of motion. There was satisfactory patellofemoral tracking. All trials were carefully removed. The tibia was subluxed anteriorly and sized to a size 5. Proximal tibia was prepared using a size 5 keel punch. All bony cut surfaces were copiously irrigated with sterile saline and dried. The final implants were cemented into place starting with the tibia followed by the femur and last the patella. An 11-mm insert trial was placed while the knee was brought out into full extension. Tourniquet was turned down at 45 minutes. Once the cement had fully cured, the insert trial was removed. Any excess cement was carefully removed from around the implant and capsule. Final insert chosen was an 11 mm posterior stabilized articular insert size 5/6. This was locked into position on the tibial tray. Stability of the insert was checked and rechecked and noted to be stable. The knee was once again copiously irrigated with sterile saline. The extensor mechanism was closed using interrupted #1 Vicryl over a medium Hemovac drain. The rest of the incision was closed in a layered fashion using 0 and 2-0 Vicryl. Skin was closed using running 3-0 nylon suture. Sterile Xeroform, 4x4s, and Webril were used to cover the incision. Ra wrap and cold pack were placed over this. The patient's anesthesia was reversed without difficulty. She was taken to the PACU in stable condition. Intended weightbearing will be weightbearing as tolerated. Intended DVT prophylaxis will be Coumadin with a Lovenox bridge. [id number]/[facility] #: [id number] BEATRICE
[2017-04-29] MEDS: oxyCODONE/Acetamin 5/325 MG* TAB PO PRN ×3 (01:30→12:10)
[2017-04-29 06:10] LABS: Hematocrit 32 % (35-47); Hemoglobin 11.1 g/dl (12.0-16.0); Mean Platelet Volume 8 um3 (7.4-10.4); Platelet Count 257 10^3/ul (150-450)
[2017-04-29 06:11] LABS: INR 1.57 (0.77-1.02)
[2017-04-29] MEDS: Magnesium Hydroxide LIQ* 30 ML UDC PO SCH (08:30)
[2017-04-29] MEDS: amLODIPine TAB* 5 MG PO SCH (08:30)
[2017-04-29] MEDS: Docusate CAP* 100 MG PO SCH (08:30)
--- NOTE | 2017-04-29 09:20 | PN ---
Progress Note - Progress Note Date of Service: 04/29/17 SOAP: Subjective: []Patient seen at bedside. She feels well with well controlled left knee pain. Denies CP, SOB, nausea, dizziness or leg numbness. Objective: [] Vital Signs Temp 98.8 F 04/29/17 07:55 Pulse 95 04/29/17 07:55 Resp 16 04/29/17 08:30 BP 123/72 04/29/17 07:55 Pulse Ox 91 04/29/17 07:55 Intake & Output 04/28/17 04/29/17 04/29/17 18:59 06:59 18:59 Intake Total 1766 2110 225 Output Total 0 Balance 1766 2110 225 Intake: IV Fluids 716 LR 716 IVPB 110 LR 110 Oral 940 2110 225 Output: Urine 0 Other: Estimated Void Medium Medium Medium # Bowel Movements 0 0 # Voids 1 1 1 Laboratory Last Values Hgb 11.1 g/dl (12.0-16.0) L 04/29/17 05:50 Hct 32 % (35-47) L 04/29/17 05:50 Plt Count 257 10^3/ul (150-450) 04/29/17 05:50 MPV 8 um3 (7.4-10.4) 04/29/17 05:50 INR (Anticoag Therapy) 1.57 (0.77-1.02) H 04/29/17 05:50 Sodium 135 mmol/L (133-145) 04/28/17 05:54 Potassium 3.9 mmol/L (3.5-5.0) 04/28/17 05:54 Chloride 103 mmol/L (101-111) 04/28/17 05:54 Carbon Dioxide 27 mmol/L (22-32) 04/28/17 05:54 Anion Gap 5 mmol/L (2-11) 04/28/17 05:54 BUN 16 mg/dL (6-24) 04/28/17 05:54 Creatinine 0.77 mg/dL (0.51-0.95) 04/28/17 05:54 Est GFR ( Amer) 95.9 (>60) 04/28/17 05:54 Est GFR (Non-Af Amer) 74.5 (>60) 04/28/17 05:54 BUN/Creatinine Ratio 20.8 (8-20) H 04/28/17 05:54 Glucose 109 mg/dL (70-100) H 04/28/17 05:54 Calcium 8.9 mg/dL (8.6-10.3) 04/28/17 05:54 General: Well appearing, NAD LLE: Dressing changed by Dr Cain this morning without complication. Dressing CDI, no surrounding erythema. DF/PF intact. DP Pulse 2+. Sensation intact distally. Bl LE: Calves supple and nontender without erythema, edema or palpable cords. Assessment: []POD 2 S/P left total knee arthroplasty 04/27 Plan: []WBAT PT/OT Lovenox, coumadin 4 mg today Appreciate hospitalist input DC home today
[2017-04-29 11:36] VITALS: BP 132/66
[2017-04-29] MEDS: Enoxaparin(*) 30 MG/0.3 ML SYR SUBCUT SCH (12:11)
[2017-04-30] MEDS ORDERED: Scopolamine PATCH Remove* 1 NOTE MISC PATCH OFF ONE (06:00)
--- NOTE | 2017-04-30 12:32 | DS ---
DISCHARGE SUMMARY: DATE OF ADMISSION: 04/27/17 DATE OF DISCHARGE: 04/29/17 SURGEON: Pavithra Cain MD * (DICTATED BY PASTORA MENDOZA) PRODUCTION SUPPORT MANAGER: PASTORA Jarrett PRE-OP DIAGNOSIS: Severe end-stage degenerative osteoarthritis of the left knee joint. OPERATIVE PROCEDURE: Left total knee arthroplasty. INDICATIONS FOR SURGERY: Ms. Rivera is a 66-year-old female with years of increasingly severe left knee pain. She started to have feelings of instability and sharp pain and radiographs showed [id number] arthritis. She failed conservative treatment including anti-inflammatories, pain medication, intraarticular injection, and physical therapy. She therefore elected to undergo a left total knee arthroplasty. HOSPITAL COURSE: Ms. Rivera was admitted to [facility] on . She underwent a left total knee arthroplasty without complication. She was brought to the PACU to recover briefly in stable condition after her surgery then to the short-stay surgical unit again in stable condition. She was seen in consult postop day 0 by the hospitalist service due to history of hypertension, SVT, and osteoarthritis. Her home medications for hypertension were continued. She seemed to be in normal sinus rhythm and the plan was to get an EKG should she experience palpitations, which she did not have. Postop day 1, the patient is well appearing, in no acute distress. Her radial pulse was 2+. There was no obviously irregular rhythm. Left lower extremity dressing clean, dry, and intact. Cryo unit in place. No erythema proximal or distal to the dressing. Dorsiflexion and plantarflexion intact. 2+ dorsalis pedis pulse, bilateral lower extremities. Calves supple and nontender without erythema, edema, or palpable cord. Hemoglobin 12.2, hematocrit 36, INR 1.03. Postop day 2, the patient was seen at bedside, she is well appearing in no acute distress. Dressing was changed by Dr. Cain this morning without complication. Dressing was clean, dry, and intact. No surrounding erythema. Dorsiflexion and plantarflexion intact. Dorsalis pedis pulses 2+. Sensation intact distally. Hemoglobin 11.1, hematocrit 32, INR 1.57. Vital Signs: Temperature 98.8, pulse rate 94, oxygen saturation 95, respiratory rate 18, blood pressure 132/66. MEDICATIONS: 1. Magnesium 500 mg p.o. q.p.m. 2. Oscal Ultra 1 tab p.o. b.i.d. 3. Multivitamin supplement 1 tab p.o. q.a.m. 4. Metoprolol succinate 50 mg p.o. q.p.m. 5. Excedrin Extra Strength was discontinued at home for this time. 6. Amlodipine 10 mg p.o. q.a.m. 7. Acetaminophen 650 mg p.o. q.4 hours p.r.n., max daily dose of 4000 mg from all sources. 8. Docusate 100 mg p.o. b.i.d. 9. Percocet 5/325 mg 1 to 2 tabs p.o. q.4 to 6 hours p.r.n. 10. Warfarin 2 mg tabs, 1 to 3 tablets per INR dosing. DISCHARGE PLAN: Weightbearing as tolerated. Okay to shower. Do not submerge wound. Go to the emergency room with shortness of breath. Call the orthopedic office with increased drainage, redness, increased pain or fever. Also, go to the emergency room with chest pain. Coumadin dosing 04/29/17, 4 mg; 04/30/17, 2 mg; 05/01/17, 2 mg; 05/02/17, 4 mg. Recheck INR on 05/03/17. Pain control with Percocet 5/325, 1 to 2 tabs by mouth every 4 to 6 hours as needed for pain , maximum of 10 tabs per day. Follow up with Dr. Cain within 10 to 14 days. PASTORA MENDOZA [id number]/[facility] #: [id number] [facility]ALTH SYSTEM[facility]
== END 2017-04-29 13:46 | disposition home or self-care (01) | DRG 470 ==
LOC: AA 08:20 → SSU 15:24
PROVIDERS: ADMIT Orthopaedic Surgery Adult Reconstructive Orthopaedic Surgery; ATTEND Orthopaedic Surgery Adult Reconstructive Orthopaedic Surgery
PROC: 0SRD0J9 Replacement of Left Knee Joint with Synthetic Substitute, Cemented, Open Approach (ICD-10-PCS; principal; 2017-04-27 11:00)
DX: M17.12 Unilateral primary osteoarthritis, left knee (principal); I47.1 Supraventricular tachycardia; I10 Essential (primary) hypertension; M85.80 Other specified disorders of bone density and structure, unspecified site; Z96.651 Presence of right artificial knee joint; Z98.51 Tubal ligation status; Z79.01 Long term (current) use of anticoagulants; Z82.49 Family history of ischemic heart disease and other diseases of the circulatory system; Z83.3 Family history of diabetes mellitus; Z80.42 Family history of malignant neoplasm of prostate; Z72.89 Other problems related to lifestyle
CPT/HCPCS: 36415; 80048; 85014; 85018; 85049; 85610; A9270-GY; J0690; J0780; J1100; J1650; J2001; J2250; J2405; J2704; J3010

== ENCOUNTER 2018-06-23 13:16 | Emergency (ER) | payer MEDICARE ==
[2018-06-23 13:38] VITALS: BP 136/65
--- NOTE | 2018-06-23 13:52 | UC ---
Throat Pain/Nasal Abdias HPI - HPI Summary HPI Summary: 67-year-old woman comes in with a chief complaint of 4 days of sore throat and upper respiratory tract infection symptoms. Throat hurts when she swallows. She has rhinorrhea. [id number] medications aren't helping with the symptoms. No chest congestion or shortness of breath. - History of Current Complaint Chief Complaint: UCRespiratory Stated Complaint: ST Time Seen by Provider: 06/23/18 13:29 Pain Intensity: 4 - Allergies/Home Medications Allergies/Adverse Reactions: Allergies Allergy/AdvReac Type Severity Reaction Status Date / Time No Known Allergies Allergy Verified 06/23/18 13:34 Home Medications: Home Medications Metoprolol Tartrate TAB* [Lopressor TAB*] 25 mg PO DAILY 06/23/18 [History Confirmed 06/23/18] Multivitamins/Minerals TAB* [Theragran/minerals TAB*] 1 tab PO DAILY 06/23/18 [ History Confirmed 06/23/18] amLODIPine TAB* [Norvasc 5 mg TAB*] 10 mg PO DAILY 06/23/18 [History Confirmed 06/23/18] PMH/Surg Hx/FS Hx/Imm Hx Previously Healthy: Yes Cardiovascular History: Hypertension - Surgical History Surgical History: Yes Surgery Procedure, Year, and Place: Left TKA, 2017, [place]; Right TKA, 2016, [place]; Tubal Ligation, 1976, [place] - Social History Alcohol Use: Occasionally Alcohol Amount: 1 GLASS OF WINE SPECIAL OCCASIONS Substance Use Type: None Smoking Status (MU): Never Smoked Tobacco - Immunization History Most Recent Influenza Vaccination: 2016 Most Recent Pneumonia Vaccination: HAS HAD Review of Systems All Other Systems Reviewed And Are Negative: Yes Constitutional: Positive: Fever Skin: Positive: Negative Eyes: Positive: Negative ENT: Positive: Sore Throat, Nasal Discharge, Sinus Congestion Respiratory: Positive: Negative Cardiovascular: Positive: Negative Gastrointestinal: Positive: Negative Motor: Positive: Negative Neurovascular: Positive: Negative Musculoskeletal: Positive: Negative Neurological: Positive: Negative Psychological: Positive: Negative Is Patient Immunocompromised?: No Physical Exam Triage Information Reviewed: Yes Appearance: No Pain Distress, Well-Nourished, Ill-Appearing - mild Vital Signs: Initial Vital Signs Temp 98.8 F 06/23/18 13:31 Pulse 115 06/23/18 13:31 Resp 21 06/23/18 13:31 BP 136/65 06/23/18 13:31 Pulse Ox 97 06/23/18 13:31 Vital Signs Reviewed: Yes Eye Exam: Normal Eyes: Positive: Conjunctiva Clear ENT: Positive: Pharyngeal erythema, Nasal congestion, Nasal drainage, TMs normal Neck exam: Normal Neck: Positive: Supple Respiratory: Positive: Lungs clear, Normal breath sounds, No respiratory distress Cardiovascular: Positive: RRR Musculoskeletal Exam: Normal Musculoskeletal: Positive: Strength Intact, ROM Intact Neurological Exam: Normal Neurological: Positive: Alert, Muscle Tone Normal Psychological Exam: Normal Psychological: Positive: Age Appropriate Behavior Skin Exam: Normal Throat Pain/Nasal Course/Dx - Course Course Of Treatment: DISCUSSED VIRAL VERSES BACTERIAL INFECTION AND THE ROLE OF ANTIBIOTICS. THE PATIENT WISHES TO BE ON ANTIBIOTICS AT THIS TIME. - Differential Dx/Diagnosis Provider Diagnosis: Pharyngitis Discharge - Sign-Out/Discharge Documenting (check all that apply): Patient Departure All imaging exams completed and their final reports reviewed: No Studies - Discharge Plan Condition: Stable Disposition: HOME Prescriptions: Amoxicillin PO (*) [Amoxicillin 875 MG (*)] 875 mg PO BID #20 tab Patient Education Materials: Pharyngitis (ED) Referrals: Dominick Funk MD [Primary Care Provider] - Additional Instructions: FOLLOW UP WITH YOUR DOCTOR IF NOT COMPLETELY IMPROVED. GET REEVALUATED SOONER FOR ANY WORSENING OF YOUR CONDITION OR ANY QUESTIONS OR CONCERNS. - Billing Disposition and Condition Condition: STABLE Disposition: Home
== END 2018-06-23 13:58 | disposition home or self-care (01) ==
LOC: UCCORT 13:16
DX: J02.9 Acute pharyngitis, unspecified (principal); I10 Essential (primary) hypertension; Z79.899 Other long term (current) drug therapy
CPT/HCPCS: 99212; G0463